=== PATIENT | female | born 1945 | race Caucasian/White ===

== ENCOUNTER 2016-05-14 15:04 | Observation (INO) | payer OTHER ==
[~2016-05-14] VITALS: Ht 160 cm; Wt 72.0 kg
[~2016-05-14 15:04] MED LIST: ATENOLOL25 MG PO; CALCIUM 500 +1 EACH PO; CENTRUM SILVER1 EAC3 PO; GLUCOSAMINE CH1 EAC2 PO; HYDROCODON-ACE1 EAC7 PO; LO-DOSE ASPIRIN81 M1 PO; PRAVASTATIN SOD40 MG PO; RANITIDINE HCL300 MG PO; RESTASIS 01 DROP/0.4 BOTH EYES; TRIAMTERENE-HC1 EAC1 PO
[2016-05-14 15:53] LABS: EOSINOPHIL (%) 0.5 % (0-5); EOSINOPHIL COUNT 0.1 K/uL (0-0.3); HEMATOCRIT 28.4 % (36.0-46.0); IMMATURE GRANULOCYTE (%) 0.3 % (0.0-0.7); IMMATURE GRANULOCYTE COUNT 0.4 K/uL; LYMPHOCYTE COUNT 1.6 K/uL (1.0-2.8); MCH 29.4 PG (29.0-34.0); MCHC 33.5 G/DL (30.0-36.0); MCV 87.9 FL (83-99); MONOCYTE (%) 5.5 % (3-12); MONOCYTE COUNT 0.7 K/uL (0-0.8); NEUTROPHIL (%) 80.4 % (45-76); NEUTROPHIL COUNT 10.1 K/uL (1.8-6.4); RBC DIS.WIDTH-CV 14.7 % (11.8-14.6); RBC DIS.WIDTH-SD 45.3 % (39-53)
[2016-05-14 15:54] LABS: PLATELET COUNT 525 K/uL (156-360); RED BLOOD COUNT 3.23 M/uL (3.80-5.20); WHITE BLOOD COUNT 12.6 K/uL (4.1-10.2)
[2016-05-14 15:59] LABS: ADD MIUA? YES; BILIRUBIN NEGATIVE; BLOOD SMALL; COLOR YELLOW ((YELLOW)); GLUCOSE (STRIP) NEGATIVE; KETONES 20; LEUKOCYTES NEGATIVE; NITRITE NEGATIVE; PROTEIN (STRIP) NEGATIVE; SPECIFIC GRAVITY 1.013 (1.000-1.030); UROBILINOGEN 0.2 MG/DL (0.2-1.0)
[2016-05-14 16:02] LABS: CHLORIDE 88 mEq/L (99-109); POTASSIUM 4.3 mEq/L (3.7-5.4); SODIUM 125 mEq/L (136-147)
[2016-05-14 16:04] LABS: BACTERIA NONE SEEN /HPF; EPITHELIAL CELLS 1+ /HPF; MUCUS TRACE /LPF; UCUL ADDED? NO; WHITE BLOOD CELLS 0-5 /HPF (0-5)
[2016-05-14 16:04] LABS: GLUCOSE 120 mg/dL (70-99)
[2016-05-14 16:05] LABS: ANION GAP 9 MEQ/L (2-14)
[2016-05-14 16:06] LABS: TOTAL BILIRUBIN 0.3 mg/dL (0.0-1.0)
[2016-05-14 16:08] LABS: ALKALINE PHOSPHATASE 85 IU/L (3-129); GFR ESTIMATE (CALCULATED) > 59 mL/min/
[2016-05-14 16:09] LABS: UREA NITROGEN (BUN) 14 mg/dL (9-23)
[2016-05-14 16:11] LABS: LIPASE 10 U/L (1.0-51.0)
[2016-05-14] MEDS ORDERED: COUMADIN5 MG PO (18:13)
[2016-05-14 18:51] LABS: PROTHROMBIN TIME 31.1 (9.2-11.2)
[2016-05-14] MEDS ORDERED: OXAYDO5 MG PO (18:54)
[2016-05-14 22:03] VITALS: BP 126/59
[2016-05-15 00:12] VITALS: BP 112/57
[2016-05-15 04:09] VITALS: BP 96/55
[2016-05-15 07:13] LABS: ANION GAP 8 MEQ/L (2-14); CHLORIDE 103 MEQ/L (99-109); GFR ESTIMATE (CALCULATED) > 59 mL/min/; GLUCOSE 98 mg/dL (70-99); POTASSIUM 3.9 MEQ/L (3.7-5.4); SAMPLE HEMOLYSIS CHECK 0; SAMPLE ICTERIC CHECK 0; SAMPLE LIPEMIA CHECK 0; UREA NITROGEN (BUN) 11 mg/dL (9-23)
[2016-05-15 07:18] LABS: SODIUM 141 MEQ/L (136-147)
[2016-05-15 07:28] VITALS: BP 101/54
[2016-05-15] MEDS ORDERED: PROTONIX40 MG PO (10:05)
[2016-05-15 12:10] VITALS: BP 102/64
[2016-05-15 12:41] LABS: INTER. NORMALIZED RATIO 3.4; PROTHROMBIN TIME 36.5 (9.2-11.2)
== END 2016-05-15 14:32 | disposition home or self-care (01) ==
LOC: EME 15:04 → EDOF 19:24 → 5WEST 19:24
PROVIDERS: Emergency Medicine; Internal Medicine; Physician Assistant
DX: E87.1 Hypo-osmolality and hyponatremia (principal); R10.84 Generalized abdominal pain; K63.2 Fistula of intestine; K41.90 Unilateral femoral hernia, without obstruction or gangrene, not specified as recurrent; Z66 Do not resuscitate; Z96.653 Presence of artificial knee joint, bilateral; Z82.49 Family history of ischemic heart disease and other diseases of the circulatory system; I10 Essential (primary) hypertension; E87.5 Hyperkalemia; F17.210 Nicotine dependence, cigarettes, uncomplicated; Z88.8 Allergy status to other drugs, medicaments and biological substances
CPT/HCPCS: 74177; 80048; 80053; 81003; 83605; 83690; 85025; 85610; 94799; 99281; 99285; G0378; J2405; J3010; J7030

== ENCOUNTER → 2017-06-11 | Outpatient (CLI) | payer MEDICARE, OTHER ==
[~2017-06-11] MED LIST changes: +COUMADIN5 MG PO; +OXAYDO5 MG PO; +PROTONIX40 MG PO
== END | disposition home or self-care (01) ==
LOC: CDC 14:10
DX: Z01.810 Encounter for preprocedural cardiovascular examination (principal); K40.91 Unilateral inguinal hernia, without obstruction or gangrene, recurrent
CPT/HCPCS: 93000

== ENCOUNTER 2017-06-23 05:19 | Day surgery (SDC) | payer OTHER ==
[~2017-06-23] VITALS: Ht 160 cm; Wt 68.0 kg
[2017-06-23 06:01] VITALS: BP 113/71
[2017-06-23] MEDS ORDERED: COLACE100 MG PO (09:59)
[2017-06-23] MEDS ORDERED: HYDROCODON-ACE1 EAC7 PO (09:59)
[2017-06-23 12:30] VITALS: BP 89/53
[2017-06-23 13:30] VITALS: BP 80/53
[2017-06-23 14:25] VITALS: BP 84/52
== END 2017-06-23 14:32 | disposition home or self-care (01) ==
LOC: SDC
PROC: 0YU54JZ Supplement Right Inguinal Region with Synthetic Substitute, Percutaneous Endoscopic Approach (ICD-10-PCS; principal; 2017-06-23)
DX: K40.91 Unilateral inguinal hernia, without obstruction or gangrene, recurrent (principal); I10 Essential (primary) hypertension; K21.9 Gastro-esophageal reflux disease without esophagitis; Z79.82 Long term (current) use of aspirin; F17.200 Nicotine dependence, unspecified, uncomplicated
CPT/HCPCS: 88302; C1781; J0330; J0690; J1100; J1170; J2405; J2710; J7050; Q0175; S0020